=== PATIENT | male | born 1960 | race Caucasian/White ===

== ENCOUNTER 2017-09-13 17:32 | Emergency (ER) | payer MEDICAID ==
[~2017-09-13] VITALS: Ht 167.6 cm; Wt 93.4 kg
[~2017-09-13 17:32] MED LIST: ASPI81TA2 PO; ATOR40TA68 PO; HYDR25TA4 PO; LISI-600 PO
[2017-09-13 17:43] VITALS: BP_SYST 147
[2017-09-13 18:23] LABS: EOSINOPHILS # (AUTO) 0.3 K/uL (0.0-0.4); EOSINOPHILS % (AUTO) 8.1 % (0.0-4.0); HEMATOCRIT 47.3 % (36-54); HEMOGLOBIN 15.6 g/dL (14.0-18.0); LYMPHOCYTES # (AUTO) 1.4 K/uL (1.0-5.5); LYMPHOCYTES % (AUTO) 40.2 % (20.5-51.5); MEAN CORPUSCULAR HEMOGLOBIN 28 pg (27-31); MEAN CORPUSCULAR HGB CONC 33 % (32-36); MEAN CORPUSCULAR VOLUME 86 fL (79.0-98.0); MONOCYTES # (AUTO) 0.4 K/uL (0.0-1.0); MONOCYTES % (AUTO) 12.6 % (1.7-9.3); PLATELET COUNT (AUTO) 179 K/uL (130-430); RED BLOOD CELL COUNT(AUTO) 5.49 MIL/uL (4.2-6.2); RED CELL DISTRIBUTION WIDTH 14.1 % (9.0-15.0); WHITE BLOOD COUNT (AUTO) 3.4 K/uL (4.8-10.8)
[2017-09-13 18:25] LABS: BASOPHILS % (AUTO) 0.4 % (0.0-2.0); NEUTROPHILS # (AUTO) 1.3 K/uL (1.8-7.7); NEUTROPHILS % (AUTO) 38.7 % (40.0-70.0)
[2017-09-13 18:37] LABS: CALCIUM 8.6 mg/dL (8.4-11.0); CREATININE 0.91 mg/dL (0.55-1.30); POTASSIUM 3.7 mmol/L (3.5-5.1)
[2017-09-13 18:39] LABS: PROTHROMBIN TIME 10.4 SECS (9.5-12.5)
[2017-09-13 18:41] LABS: ALBUMIN 3.6 g/dL (3.4-4.8); TOTAL BILIRUBIN 0.7 mg/dL (0.0-1.0)
[2017-09-13] MEDS: IPRATROPIUM BROM 0.5 MG/2.5 ML VIAL.NEB (ATROVENT) IH ONE (19:00)
[2017-09-13] MEDS: ALBUTEROL SULFATE 0.083% 2.5 MG/3 ML VIAL.NEB IH ONE (19:00)
[2017-09-13] MEDS: NACL 0.9% 1,000 ML IV ONE (19:02)
[2017-09-13] MEDS: LEVOFLOXACIN 500 MG TABLET PO ONE (19:02)
[2017-09-13] MEDS: KETOROLAC TROMETHAMINE 30 MG VIAL IVP ONE (19:03)
[2017-09-13 19:45] VITALS: BP_SYST 143
== END 2017-09-13 19:45 | disposition home or self-care (01) ==
LOC: SED 17:32
DX: J40 Bronchitis, not specified as acute or chronic (principal); B35.4 Tinea corporis; Z88.0 Allergy status to penicillin
CPT/HCPCS: 36415; 71010; 80053; 83880; 84484; 85025; 85610; 85730; 93005; 94640; 96361; 96374; 99285; J1885; J7030

== ENCOUNTER 2018-01-09 16:13 | Emergency (ER) | payer MEDICAID ==
[~2018-01-09] VITALS: Ht 167.6 cm; Wt 122.5 kg
[2018-01-09 16:18] VITALS: BP_SYST 135
== END 2018-01-09 17:00 | disposition home or self-care (01) ==
LOC: SED 16:13
DX: J06.9 Acute upper respiratory infection, unspecified (principal); E11.9 Type 2 diabetes mellitus without complications; I10 Essential (primary) hypertension; E78.00 Pure hypercholesterolemia, unspecified; Z79.899 Other long term (current) drug therapy; Z88.0 Allergy status to penicillin
CPT/HCPCS: 99283

== ENCOUNTER 2018-11-19 21:51 | Emergency (ER) | payer MEDICAID ==
[~2018-11-19] VITALS: Ht 167.6 cm; Wt 122.5 kg
[~2018-11-19 21:51] MED LIST changes: +ASPI-1155 PO; -ASPI81TA2 PO
[2018-11-19 22:10] VITALS: BP_SYST 159
[2018-11-19] MEDS ORDERED: MORPHINE 4 MG/ML INJ. SYRINGE IM ONE (23:15)
[2018-11-20 00:55] VITALS: BP_SYST 140
== END 2018-11-20 00:55 | disposition home or self-care (01) ==
LOC: SED 21:51
DX: S09.90XA Unspecified injury of head, initial encounter (principal); S19.9XXA Unspecified injury of neck, initial encounter; E11.9 Type 2 diabetes mellitus without complications; I10 Essential (primary) hypertension; E78.00 Pure hypercholesterolemia, unspecified; Z88.0 Allergy status to penicillin; Z79.82 Long term (current) use of aspirin; Z79.899 Other long term (current) drug therapy; W07.XXXA Fall from chair, initial encounter; Y93.89 Activity, other specified; Y92.89 Other specified places as the place of occurrence of the external cause; Y99.8 Other external cause status
CPT/HCPCS: 70450; 72125; 72131; 96372; 99284; J2270

== ENCOUNTER 2019-08-17 13:20 | Emergency (ER) | payer MEDICAID ==
[~2019-08-17] VITALS: Ht 167.6 cm; Wt 95.3 kg
[2019-08-17 13:27] VITALS: BP_SYST 121
--- NOTE | 2019-08-17 14:40 | NUR ---
Patient to ER bed 02 to gown for evaluation. Side rails up.
--- NOTE | 2019-08-17 14:57 | NUR ---
PATIENT PRESENTED TO ER WITH LEFT THUMB LACERATION & TOE PAIN. PATIENT A&OX4, AFEBRILE, AMBULATORY TO ER, BLEEDING CONTROLLED, PAIN 10/. PATIENT STATES HE LACERATIED LEFT THUMB TODAY CUTTING LETTUCE AT HOME. PATIENT STATES LEFT GREAT TOE PAIN X3 DAYS, PATIENT STATES HE DROPPED BOX ON LEFT GREAT TOE.
--- NOTE | 2019-08-17 15:01 | NUR ---
EUFEMIA Alvares at bedside examining patient.
[2019-08-17] MEDS ORDERED: IBUPROFEN 600 MG TABLET PO ONE (15:15)
[2019-08-17] MEDS ORDERED: DIPH-TET-PERTUS Vaccine 0.5 ML VIAL (ADACEL) I.M. ONE (15:15)
[2019-08-17 15:30] VITALS: BP_SYST 120
--- NOTE | 2019-08-17 15:30 | NUR ---
Patient given written and verbal discharge instructions and verbalizes understanding. ER MD discussed with patient the results and treatment provided. Patient in stable condition. ID arm band removed. Rx of MOTRIN given. Patient educated on pain management and to follow up with PMD. Pain Scale0/10 . Opportunity for questions provided and answered.
== END 2019-08-17 15:30 | disposition home or self-care (01) ==
LOC: SED 13:20
DX: S61.012A Laceration without foreign body of left thumb without damage to nail, initial encounter (principal); S90.112A Contusion of left great toe without damage to nail, initial encounter; I10 Essential (primary) hypertension; E11.9 Type 2 diabetes mellitus without complications; E78.00 Pure hypercholesterolemia, unspecified; Z88.0 Allergy status to penicillin; Z79.82 Long term (current) use of aspirin; Z79.899 Other long term (current) drug therapy; W45.8XXA Other foreign body or object entering through skin, initial encounter; Y93.89 Activity, other specified; Y92.89 Other specified places as the place of occurrence of the external cause; Y99.8 Other external cause status
CPT/HCPCS: 90715; 99283

== ENCOUNTER 2020-11-28 15:21 | Emergency (ER) | payer MEDICAID ==
[~2020-11-28] VITALS: Ht 167.6 cm; Wt 94.3 kg
[2020-11-28 15:27] VITALS: BP_SYST 141
[2020-11-28] MEDS ORDERED: IBUP-1969 PO (15:41)
[2020-11-28] MEDS ORDERED: CEPH250C PO (15:41)
[2020-11-28] MEDS ORDERED: PSEU30TA36 PO (15:41)
[2020-11-28 15:44] VITALS: BP_SYST 141
== END 2020-11-28 15:44 | disposition home or self-care (01) ==
LOC: SED 15:21
DX: J32.9 Chronic sinusitis, unspecified (principal); I10 Essential (primary) hypertension; E11.9 Type 2 diabetes mellitus without complications; E78.00 Pure hypercholesterolemia, unspecified; Z88.0 Allergy status to penicillin; Z79.899 Other long term (current) drug therapy
CPT/HCPCS: 99283

== ENCOUNTER 2021-12-18 15:54 | Emergency (ER) | payer MEDICAID ==
[~2021-12-18] VITALS: Ht 172.7 cm; Wt 93.9 kg
[~2021-12-18 15:54] MED LIST changes: +CEPH250C PO; +IBUP-1969 PO; -LISI-600 PO; +LISI20TA30 PO; +PSEU30TA36 PO
[2021-12-18 16:05] VITALS: BP_SYST 134
[2021-12-18] MEDS ORDERED: DIPH-TET-PERTUS Vaccine 0.5 ML VIAL (ADACEL) I.M. ONE (16:15)
[2021-12-18] MEDS ORDERED: CEFEPIME 1 GM in D5W 50 ML IV ONE (16:15)
[2021-12-18] MEDS ORDERED: MORPHINE 4 MG INJ. 4 MG/ML VIAL IVP ONE ×2 (16:15→18:00)
[2021-12-18] MEDS ORDERED: BUPIVACAINE /PF 0.25% 30 ML VIAL INJ ONE ×2 (16:15→19:56)
[2021-12-18 16:44] LABS: BASOPHILS % (AUTO) 0.3 % (0.0-2.0); EOSINOPHILS # (AUTO) 0.1 K/uL (0.0-0.4); EOSINOPHILS % (AUTO) 2.5 % (0.0-4.0); HEMATOCRIT 44.1 % (36-54); LYMPHOCYTES % (AUTO) 39.2 % (20.5-51.5); MEAN CORPUSCULAR HEMOGLOBIN 30 pg (27-31); MEAN CORPUSCULAR HGB CONC 34 % (32-36); MEAN CORPUSCULAR VOLUME 88 fL (79.0-98.0); MONOCYTES # (AUTO) 0.5 K/uL (0.0-1.0); MONOCYTES % (AUTO) 10.5 % (1.7-9.3); NEUTROPHILS # (AUTO) 2.4 K/uL (1.8-7.7); NEUTROPHILS % (AUTO) 47.5 % (40.0-70.0); PLATELET COUNT (AUTO) 189 K/uL (130-430); RED CELL DISTRIBUTION WIDTH 14.2 % (9.0-15.0)
[2021-12-18] MEDS ORDERED: CEFEPIME 1 GM/VIAL (MAXIPIME) ONE (16:52)
[2021-12-18 17:19] LABS: ALBUMIN 3.8 g/dL (3.4-4.8); CALCIUM 9.1 mg/dL (8.4-11.0); CREATININE 0.85 mg/dL (0.55-1.30); TOTAL BILIRUBIN 0.7 mg/dL (0.0-1.0)
[2021-12-18 17:39] LABS: PROTHROMBIN TIME 10.4 SECS (9.5-12.5)
[2021-12-19] MEDS ORDERED: DIPHENHYDRAMINE INJ 50 MG/ML VIAL IM ONE (01:45)
[2021-12-19] MEDS ORDERED: MORPHINE 4 MG INJ. 4 MG/ML VIAL IM ONE (01:45)
[2021-12-19] MEDS ORDERED: MORPHINE 2 MG/ML INJ. SYRINGE ONE (02:11)
[2021-12-19] MEDS ORDERED: MORPHINE 4 MG INJ. 4 MG/ML VIAL IVP ONE (07:30)
[2021-12-19 10:52] VITALS: BP_SYST 124
[2021-12-19] MEDS ORDERED: HYDROcodone/ACETAMIN 10-325 MG TAB PO ONE (12:00)
== END 2021-12-19 08:11 | disposition short-term general hospital (02) ==
LOC: SED 15:54
DX: S92.422A Displaced fracture of distal phalanx of left great toe, initial encounter for closed fracture (principal); I10 Essential (primary) hypertension; E11.9 Type 2 diabetes mellitus without complications; Z88.0 Allergy status to penicillin; E78.00 Pure hypercholesterolemia, unspecified; G89.11 Acute pain due to trauma; Z20.822 Contact with and (suspected) exposure to COVID-19; W45.8XXA Other foreign body or object entering through skin, initial encounter; Y93.89 Activity, other specified; Y92.89 Other specified places as the place of occurrence of the external cause; Y99.8 Other external cause status
CPT/HCPCS: 36415; 64450; 73660; 80053; 85025; 85610; 87426; 90471; 90715; 96365; 96375 ×2; 96376 ×2; 99285; J0692; J1200; J2270 ×3; J3490

== ENCOUNTER 2022-06-23 11:28 | Emergency (ER) | payer MEDICAID ==
[~2022-06-23] VITALS: Ht 167.6 cm; Wt 93.0 kg
[2022-06-23 11:48] VITALS: BP_SYST 145
--- NOTE | 2022-06-23 11:55 | NUR ---
PT BIB SELF, AWAKE AND ALERT AOX 4. NO SOB OR DISTRESS. PERRLA. DENIES PAIN PT C/O COUGH X2 DAYS.
--- NOTE | 2022-06-23 12:00 | NUR ---
MD DR COTTRELL AT BEDSIDE
[2022-06-23] MEDS ORDERED: ALBMDI INH (13:36)
[2022-06-23] MEDS ORDERED: NIRM1TAB PO (13:36)
--- NOTE | 2022-06-23 14:08 | NUR ---
Patient given written and verbal discharge instructions and verbalizes understanding. ER MD discussed with patient the results and treatment provided. Patient in stable condition. ID arm band removed. Rx of RITONAVIR AND ALBUTEROL given. Patient educated on pain management and to follow up with PMD. Opportunity for questions provided and answered. Medication side effect fact sheet provided.
[2022-06-23 14:11] VITALS: BP_SYST 142
== END 2022-06-23 14:08 | disposition home or self-care (01) ==
LOC: SED 11:28
DX: U07.1 COVID-19 (principal); I10 Essential (primary) hypertension; E11.9 Type 2 diabetes mellitus without complications; E78.00 Pure hypercholesterolemia, unspecified; Z88.0 Allergy status to penicillin; Z79.84 Long term (current) use of oral hypoglycemic drugs; Z79.899 Other long term (current) drug therapy
CPT/HCPCS: 36415; 71045; 99284

== ENCOUNTER 2023-03-26 22:54 | Emergency (ER) | payer MEDICAID ==
[~2023-03-26] VITALS: Ht 167.6 cm; Wt 86.2 kg
[~2023-03-26 22:54] MED LIST changes: +ALBMDI INH; +NIRM1TAB PO
[2023-03-26 23:02] VITALS: BP_SYST 129; PULSE 72; RESP 16; TEMP 98.4; O2SAT 99
--- NOTE | 2023-03-27 00:01 | NUR ---
Patient to ER bed 02 to gown for evaluation. Side rails up. Report given to СВЕТЛАНА HAWKINS
--- NOTE | 2023-03-27 00:15 | NUR ---
pt bib self c/o right hand 4th digital pain 10/10. pt denies any previous trauma or animal bites to the area. pt pulses on right hand wnl. pt cap refill less then <3 seconds. pt has a history of htn and high cholestrol. pt gcs 15 eyes open spontaneously. pt oriented to person,place, time, and situation. pt obeys commands. pt denies sob or chest pain at this time. pt is afebril. pt in room 2 on the monitor with at bedside. plan of care continues.
--- NOTE | 2023-03-27 00:20 | NUR ---
EUFEMIA DC AT BEDSIDE EXAMINING THE PATIENT.
--- NOTE | 2023-03-27 00:34 | NUR ---
dr. lucas at bedside examining 4th digital.
[2023-03-27] MEDS ORDERED: CEPH-548 PO (01:19)
[2023-03-27 01:29] VITALS: BP_SYST 136; PULSE 92; RESP 18; TEMP 97.9; O2SAT 99
--- NOTE | 2023-03-27 01:29 | NUR ---
Patient given written and verbal discharge instructions and verbalizes understanding. ER MD discussed with patient the results and treatment provided. Patient in stable condition. ID arm band removed. Rx of CEPHALEXIN given. Patient educated on pain management and to follow up with PMD. Pain Scale 0/10. Opportunity for questions provided and answered. Medication side effect fact sheet provided.
== END 2023-03-27 01:29 | disposition home or self-care (01) ==
LOC: SED 22:54
DX: S60.452A Superficial foreign body of right middle finger, initial encounter (principal); E11.9 Type 2 diabetes mellitus without complications; I10 Essential (primary) hypertension; Z88.0 Allergy status to penicillin; Z79.899 Other long term (current) drug therapy; W45.8XXA Other foreign body or object entering through skin, initial encounter; Y93.89 Activity, other specified; Y92.89 Other specified places as the place of occurrence of the external cause; Y99.8 Other external cause status
CPT/HCPCS: 99283; 99285